=== PATIENT | male | born 1960 | race Caucasian/White ===

== ENCOUNTER 2023-12-12 07:22 | Emergency (ER) | payer BC, SELFPAY ==
[2023-12-12 07:29] VITALS: BP 152/98; PULSE 70; RESP 18; TEMP 36.5; O2SAT 98; BMI 30.4
--- NOTE | 2023-12-12 08:02 | ED_ITS ---
HPI - Eye Problem General Time Seen by Provider: 08:02 Date Seen: 12/12/23 Chief complaint: Eye Problems Stated complaint: Double/blurred vision Time Seen by Provider: 12/12/23 08:01 Source: patient and RN notes reviewed Mode of arrival: ambulatory Limitations: no limitations History of Present Illness HPI Narrative: This 63-year-old male is coming in with abnormality in his vision. He noted this starting last night. He mowed the lawn, came in and was working on his bike, with bloating information on the computer screen. Looked out from the bike into the distance, noted his vision was off. He describes it that it felt like his eye was lazy but he cannot attribute this to 1 eye. He states he was seeing 2 different levels, like 1 eye was seeing higher than the other. If he would close either eye the double vision would go away. He thought he was just tired, went to go to bed. Was around 8:00 p.m. when he noted these visual changes. Around 6 or 630 when he woke up, the abnormality was still there. His gave him some ibuprofen and Tylenol, he states about 20 minutes later everything went away. He was not having a headache with this, does have a history of migraines when he was young but has not been bothered by these for years. There was no pain. He has had no difficulty swallowing, notes no changes in his voice, no other associated muscular or numbness tingling sensations anywhere else in the body. Rare social alcohol use, he does smoke. He has not been to the doctor in years, does not know what his cholesterol is. He is fasting this morning. Denies any cardiac or respiratory history. [place] no chest pain, palpitations or irregular heartbeat with this. chief complaint: vision change Related Data Previous Rx's ?Medication ?Instructions ?Recorded rosuvastatin 20 mg tablet (Crestor) 20 mg PO DAILY #30 tabs 12/12/23 Allergies Allergy/AdvReac Type Severity Reaction Status Date / Time No Known Drug Allergies Allergy Verified 12/12/23 07:35 Review of Systems Status of ROS: Reports: 6 or more systems reviewed and unremarkable except as noted in History and below PFSH PFS Social History Smoking Status: Never smoker Do you use any of these nicotine containing products: None Second hand tobacco smoke exposure: No How often do you have a drink containing alcohol: never AUDIT-C Alcohol total score: 0 Non-prescribed substance use: denies use Exam Const: Vital Signs, click to edit/add: Vital Signs - 24 hr 12/12/23 07:29 12/12/23 08:13 Temperature 97.7 F Pulse Rate [Left P ulse Oximeter] 70 Respiratory Rate 18 Blood Pressure [Le ft Upper Arm] 152/98 H Pulse Oximetry 98 98 Oxygen Delivery Me thod Room Air This 63-year-old male is alert, interactive, no apparent distress. He does have glasses with bifocals. Pupils are equal and round, reactive, extraocular muscles are intact. Cover uncover reveals no abnormal movements. I note no nystagmus. He has symmetrical facial function, normal sensation throughout. Speech is normal. Neck is supple, note no adenopathy or masses. Lungs are clear. CV regular rate and rhythm no murmur, normal S1-S2. Motor is normal and symmetrical throughout facial full upper and lower extremities. Normal light touch sensation. He is ambulatory into the ED of his own accord. No lower extremity edema. Documenting provider has reviewed patient's vital signs: yes Course Course ED Course: Will have staff get a visual acuity. Will get an EKG, have him on cardiac monitoring to ensure no underlying arrhythmia. Will need baseline labs, given that this patient has had no medical care and is fasting, will see where his lipid panel is. This certainly could be ischemic. Does not sound like it is neuromuscular transmission defect or myopathy or mechanical restriction but these are all considered. His exam is currently normal. Will talk to Stroke Neurology to see if they agree with proceeding with neuro imaging with MRI. Reevaluation(s) Time of Reevaluation #1: 13:09 Reevaluation #1: Reviewed MRI reports with patient. Thankfully there is no ischemic change, nothing concerning on the MRI outside of the bony abnormality that they have recommended a CT for. There where that he will be getting a head CT. We did review his LDL cholesterol being in the 190 range, discuss this is excessively high. Went over risks benefits of treatment of this. His would really like him to go on cholesterol medicine, he will do it likely because she says he well. Discussed that he will need follow-up. Went over liver enzyme changes, side effects. Will write for cholesterol medicine for him to start on discharge. If his workup here is negative, this is presumably a migraine equivalent. Time of Reevaluation #2: 14:25 Consultations Consultation #1: Spoke with Stroke Neurology from [place] Dr. Mcqueen. He would like us to proceed with MRI MRA head and neck. Time: 08:21 Vital Signs Vital signs: Initial Vital Signs Temperature 97.7 F 12/12/23 07:29 Temperature Source Temporal Artery Scan 12/12/23 07:29 Pulse Rate 70 12/12/23 07:29 Pulse Rhythm Regular 12/12/23 07:29 Pulse Strength 3+ Normal 12/12/23 07:29 Respiratory Rate 18 12/12/23 07:29 Blood Pressure 152/98 H 12/12/23 07:29 Blood Pressure Mean 116 H 12/12/23 07:29 Blood Pressure Position Sitting 12/12/23 07:29 Pulse Oximetry 98 12/12/23 07:29 Oxygen Delivery Method Room Air 12/12/23 07:29 Vital Signs Temperature 97.7 F 12/12/23 07:29 Pulse Rate 70 12/12/23 07:29 Respiratory Rate 18 12/12/23 07:29 Blood Pressure 152/98 H 12/12/23 07:29 Pulse Oximetry 98 12/12/23 07:29 Oxygen Delivery Method Room Air 12/12/23 07:29 Temperature 97.7 F 12/12/23 07:29 Pulse Rate 70 12/12/23 07:29 Respiratory Rate 18 12/12/23 07:29 Blood Pressure 152/98 H 12/12/23 07:29 Pulse Oximetry 98 12/12/23 08:13 Oxygen Delivery Method Room Air 12/12/23 07:29 MDM - Eye Problem Lab Data Attestation: I reviewed the patient's lab results. Labs: Lab Results 12/12/23 12/12/23 12/12/23 Range/Units 08:13 08:14 08:18 WBC 5.49 (4.50-11.00) K/uL RBC 5.73 (4.30-5.90) m/uL Hgb 16.4 (13.5-17.5) gm/dL Hct 49.7 (37.0-53.0) % MCV 87 (80-100) fL MCH 29 (26-34) pg MCHC 33 (32-36) gm/dL RDW Coeff of Femi 12.8 (11.5-15.5) % Plt Count 251 (140-440) K/uL Neut % (Auto) 52.8 (42.0-72.0) % Lymph % (Auto) 37.7 (20-44) % [place] % (Auto) 5.5 (0.0-11.0) % Eos % (Auto) 3.5 (0.0-7.0) % Baso % (Auto) 0.5 (0.0-3.0) % Neut # (Auto) 2.90 (1.7-7.0) K/uL Lymph # (Auto) 2.07 (0.90-2.90) K/uL [place] # (Auto) 0.30 (0.00-0.90) K/UL Eos # (Auto) 0.19 (0.00-0.50) K/uL Baso # (Auto) 0.03 (0.00-0.30) K/uL Abs Immat Gran (auto) 0.00 (0.00-0.30) K/uL Imm/Tot Granulo (auto) 0.0 % INR 0.95 (0.91-1.10) APTT 30 (23-33) Seconds Sodium 140 (135-149) mmol/L Potassium 4.2 (3.6-5.1) mmol/L Chloride 106 (96-114) mmol/L Carbon Dioxide 31 (20-32) mmol/L Anion Gap 3 L (7-15) mEq/L BUN 15 (7-30) mg/dL Creatinine 1.2 (0.5-1.5) mg/dL Estimated Creat Clear 62.54 Estimated GFR 69 ml/min Glucose 94 (60-115) mg/dL Calcium 9.4 (8.4-10.6) mg/dL Total Bilirubin 1.5 (0.1-1.5) mg/dL AST 39 H (12-35) U/L ALT 21 (4-50) U/L Alkaline Phosphatase 84 (40-150) U/L C-Reactive Protein 1.3 H (0.5-1.0) mg/dL Total Protein 8.6 H (6.0-8.3) g/dL Albumin 4.9 (3.3-5.0) g/dL Triglycerides 94 (40-149) mg/dL Cholesterol 266 H (90-199) mg/dL LDL Cholesterol, Calc 191 H (<100) mg/dL HDL Cholesterol 56 (>=40) mg/dL Lab Acknowledgement Test Added Imaging Data MR Brain: Attestation: I have reviewed the pertinent imaging results. Radiologist's impression: Patient: ALIDA SOMMER Facility:?[facility] Patient ID:?[id number] Site Patient ID:?[id number]. Site :?[id number] Study:?MRI-Head W/ and W/O Cont 20 CC DOATERM-12/12/2023 12:24:23 PM Ordering Physician:Fernandez Wheeler Final Report: Indication: Double vision. Technique: MRI Head: Performed without and with intravenous contrast. MRA Head: Performed without IV contrast. MRA Neck: Performed without and with intravenous contrast. Contrast: 20 cc Dotarem. Comparison: None relevant available at the time of interpretation. Findings: MRI Head: The corpus callosum and clivus appear intact. Partly empty sella morphology. Mild degenerative change visualized upper cervical spine. There is no restricted diffusion. No intracranial hemorrhage. The ventricles are proportionate to the cerebral sulci. The 4th ventricle appears midline. The basal cisterns appear patent. No abnormal extra-axial fluid collection identified. No midline shift. The orbits are preserved. Focal thickening of the left frontal calvarium. There is a lesion along the greater wing of the left sphenoid, with irregular enhancement, measuring up to 1.6 x 0.8 cm (TR x AP). This abuts the anterior temporal lobe without parenchymal edema. MRA Head: The visualized first and second order intracranial vessels are unremarkable. No occlusion/filling defect or acquired arterial stenosis identified. No aneurysm or vascular malformation seen. MRA Neck: No evidence for hemodynamically significant internal carotid artery stenosis by NASCET criteria. The cervical segments of both vertebral arteries are patent. The visualized portions of the aortic arch, great vessel origins and proximal subclavian arteries are unremarkable. Impression: MRI Head: 1. No acute/subacute infarct. 2. Lesion along the greater wing of the left sphenoid demonstrates heterogeneous enhancement. CT of the head is recommended to assess for underlying osseous change as differential considerations would include fibrous dysplasia, heavily calcified meningioma, with metastases or other osseous process not excluded. 3. Nonspecific focal thickening of the left frontal calvarium. MRA Head: 1. No hemodynamically significant stenosis or occlusion. 2. No aneurysm. MRA Neck: 1. No evidence for hemodynamically significant ICA stenosis by NASCET criteria. Dictated by Tian Peralta MD @ 12/12/2023 12:48:09 PM (Electronic Signature) CT scan - head: Attestation: I have reviewed the pertinent imaging results. Radiologist's impression: Patient: ALIDA SOMMER Facility:?[facility] Patient ID:?[id number] Site Patient ID:?[id number]. Site :?[id number] Study:?CT-Head WITHOUT-12/12/2023 1:38:53 PM Ordering Physician:Fernandez Wheeler Final Report: Indication: Left greater wing of the sphenoid lesion seen on MRI. Technique: CT of the brain was performed without intravenous contrast. Comparison: MRI brain same day. Findings: There is hyperostosis along the left greater wing of the sphenoid which corresponds to the noted abnormality on MRI. No aggressive features identified. No osseous erosion. Nonspecific thickening of the left frontal calvarium. No osseous erosion or aggressive features. No acute blurring of the fulton-white differentiation. There is no intracranial hemorrhage. The ventricles are proportionate to the cerebral sulci. The 4th ventricle is midline. Basal cisterns appear patent. No abnormal extra-axial fluid collection identified. There is no intracranial mass, mass effect or midline shift identified. No depressed calvarial fracture. Impression: 1. No acute intracranial process. 2. 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 No aggressive features identified. 3. Nonspecific thickening of the left frontal calvarium without aggressive features. Please note that all CT scans at this facility use dose modulation, iterative reconstruction, and/or weight-based dosing when appropriate to reduce radiation dose to as low as reasonably achievable. Dictated by Tian Peralta MD @ 12/12/2023 2:02:36 PM (Electronic Signature) ECG Data Attestation: I personally reviewed and interpreted this ECG as follows: (Normal sinus rhythm, 61 beats per minute. Artifact seen. No acute ischemic change. Possible anterior changes indicative of prior event with Q-waves in V2 V3 and flipped T-waves but no ST segment changes.) ECG interpretation date: 12/12/23 ECG interpretation time: 08:30 Discharge Plan Discharge Clinical Impression: Double vision Hyperlipidemia Qualifiers: Hyperlipidemia type: unspecified Qualified Code(s): E78.5 - Hyperlipidemia, unspecified Patient Disposition: Home, Self-Care Condition: Stable Instructions: Diplopia (ED), Hyperlipidemia (DC) Additional Instructions: Start cholesterol medicine and take as prescribed. You should follow up in clinic, will need ongoing monitoring for treatment of your cholesterol and further labs done. There was no central process such as stroke found for your double vision. If it does recur, do recommend further evaluation. I would have of your eyes looked at, retested. When you follow-up in clinic, they can recheck your blood pressure. It is mildly elevated here and lifestyle changes should be observed 1st. It is recommended that you try to eat a low-fat, low- sodium diet. Exercise is important for healthy lifestyle. Activity Level: Activity as Tolerated Discharge Diet: Heart Healthy (2 gm sodium, low fat) Prescriptions: New rosuvastatin [Crestor] 20 mg tablet 20 mg PO DAILY Qty: 30 0RF Follow Up/Referrals: Provider,Not a Local [Primary Care Provider] - Stand Alone Forms: [employer] Info Instructions
[2023-12-12 08:13] VITALS: O2SAT 98
--- NOTE | 2023-12-12 08:27 | CRLHL7_ITS ---
For Patients: As a result of the Century Cures Act, medical imaging exams and procedure reports are released immediately into your electronic medical record. You may view this report before your referring provider. If you have questions, please contact your health care provider. Indication: Double vision. Technique: MRI Head: Performed without and with intravenous contrast. MRA Head: Performed without IV contrast. MRA Neck: Performed without and with intravenous contrast. Contrast: 20 cc Dotarem. Comparison: None relevant available at the time of interpretation. Findings: MRI Head: The corpus callosum and clivus appear intact. Partly empty sella morphology. Mild degenerative change visualized upper cervical spine. There is no restricted diffusion. No intracranial hemorrhage. The ventricles are proportionate to the cerebral sulci. The 4th ventricle appears midline. The basal cisterns appear patent. No abnormal extra-axial fluid collection identified. No midline shift. The orbits are preserved. Focal thickening of the left frontal calvarium. There is a lesion along the greater wing of the left sphenoid, with irregular enhancement, measuring up to 1.6 x 0.8 cm (TR x AP). This abuts the anterior temporal lobe without parenchymal edema. MRA Head: The visualized first and second order intracranial vessels are unremarkable. No occlusion/filling defect or acquired arterial stenosis identified. No aneurysm or vascular malformation seen. MRA Neck: No evidence for hemodynamically significant internal carotid artery stenosis by NASCET criteria. The cervical segments of both vertebral arteries are patent. The visualized portions of the aortic arch, great vessel origins and proximal subclavian arteries are unremarkable. Impression: MRI Head: 1. No acute/subacute infarct. 2. Lesion along the greater wing of the left sphenoid demonstrates heterogeneous enhancement. CT of the head is recommended to assess for underlying osseous change as differential considerations would include fibrous dysplasia, heavily calcified meningioma, with metastases or other osseous process not excluded. 3. Nonspecific focal thickening of the left frontal calvarium. MRA Head: 1. No hemodynamically significant stenosis or occlusion. 2. No aneurysm. MRA Neck: 1. No evidence for hemodynamically significant ICA stenosis by NASCET criteria. Dictated by Tian Peralta MD @ 12/12/2023 12:48:38 PM (Electronically Signed)
[2023-12-12 08:41] LABS: Basophils Absolute Auto 0.03 K/uL (0.00-0.30); Basophils Percent Auto 0.5 % (0.0-3.0); Eosinophils Absolute Auto 0.19 K/uL (0.00-0.50); Eosinophils Percent Auto 3.5 % (0.0-7.0); Hematocrit 49.7 % (37.0-53.0); Hemoglobin* 16.4 gm/dL (13.5-17.5); Lymphocytes Absolute Auto 2.07 K/uL (0.90-2.90); Lymphocytes Percent Auto 37.7 % (20-44); Mean Corpuscular HGB Conc 33 gm/dL (32-36); Mean Corpuscular Hemoglobin 29 pg (26-34); Mean Corpuscular Volume 87 fL (80-100); Monocytes Percent Auto 5.5 % (0.0-11.0); Neutrophils Percent Auto 52.8 % (42.0-72.0); Platelet Count* 251 K/uL (140-440); RDW Coefficient of Variation % 12.8 % (11.5-15.5); Red Blood Count 5.73 m/uL (4.30-5.90); White Blood Count* 5.49 K/uL (4.50-11.00)
[2023-12-12 08:43] LABS: Slide Review Reflex No
[2023-12-12 08:52] LABS: Albumin* 4.9 g/dL (3.3-5.0); Chloride* 106 mmol/L (96-114); Sodium* 140 mmol/L (135-149)
[2023-12-12 08:53] LABS: Potassium* 4.2 mmol/L (3.6-5.1)
[2023-12-12 08:53] LABS: INR 0.95 (0.91-1.10); Prothrombin Time 13.2 Seconds
[2023-12-12 08:54] LABS: Partial Thromboplastin Time* 30 Seconds (23-33)
[2023-12-12 08:54] LABS: Cholesterol* 266 mg/dL (90-199)
[2023-12-12 08:55] LABS: Alanine Aminotransferase* 21 U/L (4-50); Alkaline Phosphatase* 84 U/L (40-150); Anion Gap 3 mEq/L (7-15); Aspartate Amino Transferase* 39 U/L (12-35); Bilirubin Total* 1.5 mg/dL (0.1-1.5); Blood Urea Nitrogen* 15 mg/dL (7-30); Carbon Dioxide* 31 mmol/L (20-32); Creatinine* 1.2 mg/dL (0.5-1.5); Est. Creatinine Clearance* 62.54; Estimated Glomerular Filt Rate 69 ml/min; Total Protein* 8.6 g/dL (6.0-8.3)
[2023-12-12 08:56] LABS: Calcium* 9.4 mg/dL (8.4-10.6); Glucose* 94 mg/dL (60-115); HDL Cholesterol* 56 mg/dL (>=40); LDL Cholesterol Calculated 191 mg/dL (<100); Triglycerides* 94 mg/dL (40-149)
[2023-12-12 08:58] LABS: C Reactive Protein* 1.3 mg/dL (0.5-1.0)
--- NOTE | 2023-12-12 13:09 | CRLHL7_ITS ---
For Patients: As a result of the Century Cures Act, medical imaging exams and procedure reports are released immediately into your electronic medical record. You may view this report before your referring provider. If you have questions, please contact your health care provider. Indication: Left greater wing of the sphenoid lesion seen on MRI. Technique: CT of the brain was performed without intravenous contrast. Comparison: MRI brain same day. Findings: There is hyperostosis along the left greater wing of the sphenoid which corresponds to the noted abnormality on MRI. No aggressive features identified. No osseous erosion. Nonspecific thickening of the left frontal calvarium. No osseous erosion or aggressive features. No acute blurring of the fulton-white differentiation. There is no intracranial hemorrhage. The ventricles are proportionate to the cerebral sulci. The 4th ventricle is midline. Basal cisterns appear patent. No abnormal extra-axial fluid collection identified. There is no intracranial mass, mass effect or midline shift identified. No depressed calvarial fracture. Impression: 1. No acute intracranial process. 2. 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 No aggressive features identified. 3. Nonspecific thickening of the left frontal calvarium without aggressive features. Please note that all CT scans at this facility use dose modulation, iterative reconstruction, and/or weight-based dosing when appropriate to reduce radiation dose to as low as reasonably achievable. Dictated by Tian Peralta MD @ 12/12/2023 2:02:36 PM (Electronically Signed)
== END 2023-12-12 14:32 | disposition home or self-care (01) ==
PROVIDERS: Emergency Provider Family Medicine
DX: H53.8 Other visual disturbances (principal); E78.5 Hyperlipidemia, unspecified
CPT/HCPCS: 36415; 70450; 70544; 70549; 70553; 80053; 80061; 85025; 85610; 85730; 86140; 93005; 94761; 99285; A9575